=== PATIENT | male | born 1955 | race Caucasian/White ===

== ENCOUNTER 2016-09-11 12:55 | Emergency (ER) | payer BC ==
[~2016-09-11] VITALS: Ht 182.9 cm; Wt 91.2 kg
[~2016-09-11 12:55] MED LIST: ANTICRE6 PO
[2016-09-11 13:07] VITALS: BP 131/90; PULSE 79; RESP 18; TEMP 97.7; O2SAT 99
--- NOTE | 2016-09-11 14:04 | PD ---
HPI Chief Complaint: Cold / Flu Symptoms Time Seen by Provider: 14:03 Travel History International Travel<30 days: No Contact w/Intl Traveler<30days: No Traveled to known affect area: No History of Present Illness HPI 60 year old male presents to the ED for evaluation of 10 day history of nonproductive cough, sore throat, clear rhinorrhea, malaise. Onset gradual. Patient also endorses dull headache, similar to previous headaches, responsive to treatment with ibuprofen. Denies fevers, vision changes, ear pain. Patient sought treatment today "because I am sick of feeling this way." Patient is a current smoker. Denies receiving this years influenza vaccination. Takes no daily medications. NKDA. PFSH Past Medical History Arthritis: Yes Blood Disorders: No Cancer: No Cardiovascular Problems: No Chemotherapy: No Endocrine: No Gastrointestinal Disorders: Yes GERD: Yes Genitourinary: No Immune Disorder: No Musculoskeletal: Yes Neurologic: No Psychiatric: No Reproductive: No Respiratory: No Radiation Therapy: No Past Surgical History AICD: No Arteriovenous Shunt: No Insulin Pump: No Joint Replacement: No Oral Surgery: Yes Pacemaker: No Other Surgery: Yes (LEFT ANKLE PINS 2005) Social History Alcohol Use: Yes (social) Tobacco Use: Yes Substance Use: No Allergies-Medications (Allergen,Severity, Reaction): Coded Allergies: No Known Allergies (Verified , 09/11/16) Reported Meds & Prescriptions Reported Meds & Active Scripts Active No Active Prescriptions or Reported Medications Review of Systems Except as stated in HPI: all other systems reviewed are Neg Physical Exam Narrative GENERAL: Well-nourished, well-developed nontoxic appearing white male in no acute distress. SKIN: Warm and dry. HEAD: Normocephalic. Atraumatic. EYES: No scleral icterus. No injection or drainage. PERRLA. EOMI. ENT: Pearly smith tympanic membranes bilaterally. Nasal mucosa is moist. Oropharynx with mild posterior erythema. No edema or exudate. Uvula midline. Airway patent. NECK: Supple, trachea midline. No JVD or lymphadenopathy. CARDIOVASCULAR: Regular rate and rhythm without murmurs, gallops, or rubs. No carotid bruits. 2+ DP and radial pulses bilaterally. RESPIRATORY: Breath sounds clear and equal bilaterally. No accessory muscle use. GASTROINTESTINAL: Abdomen soft, non-tender, nondistended. + Bowel sounds MUSCULOSKELETAL: No cyanosis, or edema. Patient is observed to walk with a normal gait. BACK: No obvious deformity. No CVA tenderness. Data Data Last Documented VS Vital Signs Date Time Temp Pulse Resp B/P Pulse Ox O2 Delivery O2 Flow Rate FiO2 09/11/16 13:07 97.7 79 18 131/90 99 Orders Group A Rapid Strep Screen (09/11/16 14:11) Strep Culture (Group A) (09/11/16 14:15) MDM Medical Decision Making Medical Screen Exam Complete: Yes Emergency Medical Condition: Yes Differential Diagnosis Viral syndrome versus pharyngitis versus strep pharyngitis versus influenza versus environmental allergies versus other Narrative Course 60 year old male presents to the ED for evaluation of 10 day history of nonproductive cough, sore throat, clear rhinorrhea, malaise. Onset gradual. Patient also endorses dull headache, similar to previous headaches, responsive to treatment with ibuprofen. Denies fevers, vision changes, ear pain. Patient sought treatment today "because I am sick of feeling this way." Patient is a current smoker. Vitals reviewed. Physical exam reveals a nontoxic appearing white male in no acute distress. Mild posterior oropharyngeal erythema without exudates or edema. Uvula midline, airway patent. No anterior cervical LAD. Chest CTAB. Rapid strep swab negative. This is viral syndrome. Patient was encouraged to continue with symptomatic care with [id number] medications, consider a second generation antihistamine, stop smoking, follow-up with his primary care provider. We discussed reasons to return to the ED. The patient indicated understanding of the instructions, is amenable to plan of care, is stable and discharged home. Diagnosis Primary Impression: Viral syndrome Referrals: Primary Care Physician Patient Instructions: General Instructions, Viral Syndrome (ED) Additional Instructions: Rest, hydrate. STOP SMOKING. Consider adding an OTC second generation antihistamine (Ines, Zyrtec, Claritin) to your daily medication regimen. Continue with symptomatic treatment with OTC medications. Alternating Motrin and Tylenol every 4-6 hours as needed for headache or fever. Increase handwashing frequently to avoid the spread of the virus to other family members and the community. Disinfect commonly touched surfaces such as light switches, microwaves, remote controls. Replace toothbrush at the end of this illness. Follow-up with the primary care provider this week. Return to the ED for any urgent or emergent medical condition. Scripts No Active Prescriptions or Reported Meds Disposition: 01 DISCHARGE HOME Condition: Stable Freya Mahmood Sep 11, 2016 14:04
== END 2016-09-11 15:05 | disposition home or self-care (01) ==
LOC: PHED 12:55 → PHEFT 15:05
DX: B34.9 Viral infection, unspecified (principal); R05 Cough; R51 Headache; J02.9 Acute pharyngitis, unspecified; K21.9 Gastro-esophageal reflux disease without esophagitis; F17.210 Nicotine dependence, cigarettes, uncomplicated
CPT/HCPCS: 87081; 87880; 99283